=== PATIENT | female | born 1965 | race Caucasian/White ===

== ENCOUNTER 2017-09-03 10:34 | Emergency (ER) | payer MEDICAID ==
[~2017-09-03] VITALS: Ht 152.4 cm; Wt 87.0 kg
[2017-09-03 10:37] VITALS: BP 194/101; PULSE 91; RESP 16; O2SAT 100
--- NOTE | 2017-09-03 11:49 | PD ---
HPI Chief Complaint: Back/ Neck Pain or Injury Time Seen by Provider: 11:08 Travel History International Travel<30 days: No Contact w/Intl Traveler<30days: No Traveled to known affect area: No History of Present Illness HPI 52-year-old female came to the emergency room with history of lower back pain since yesterday. Patient says that yesterday morning she twisted to get something and heard a pop in her lower back and since then she has been in pain. She has been using warm shower and taking her pain medications but not working. This morning the pain was worse and decided to come to the emergency room. Patient does have history of chronic back problems and multiple herniated disks. She has a heel painter that she goes to. She has seen a neurosurgeon in the past who has told her that a surgery is not an option for her. She has had this kind of pain in the past. Pain is worse upon movement. It radiates down both her legs. No bladder or bowel incontinence PFSH Past Medical History Narrative Medical List of her past medical, surgical, social and family history reviewed from the nursing note. ?: Not Past Surgical History Hysterectomy: Yes Social History Tobacco Use: Yes Allergies-Medications (Allergen,Severity, Reaction): Coded Allergies: Anesthetics - Patty Type- Parabens (Verified Allergy, Severe, 09/03/17) "KIDNEY, LIVER FAILURE" Comments List of her allergies reviewed from the nursing note. Reported Meds & Prescriptions Reported Meds & Active Scripts Active Flexeril (Cyclobenzaprine HCl) 7.5 Mg Tab 7.5 Mg PO TID Narrative Medication List of her home medications reviewed from the nursing note. Review of Systems Except as stated in HPI: all other systems reviewed are Neg Musculoskeletal: Positive: Pain Physical Exam Narrative GENERAL: Awake, alert, moderate distress SKIN: Focused skin assessment warm/dry. HEAD: Atraumatic. Normocephalic. EYES: Pupils equal and round. No scleral icterus. No injection or drainage. ENT: No nasal bleeding or discharge. Mucous membranes pink and moist. NECK: Trachea midline. No JVD. CARDIOVASCULAR: Regular rate and rhythm. No murmur appreciated. RESPIRATORY: No accessory muscle use. Clear to auscultation. Breath sounds equal bilaterally. GASTROINTESTINAL: Abdomen soft, non-tender, nondistended. Hepatic and splenic margins not palpable. MUSCULOSKELETAL: No obvious deformities. No clubbing. No cyanosis. No edema. Paraspinal muscle spasm NEUROLOGICAL: Awake and alert. No obvious cranial nerve deficits. Motor grossly within normal limits. Normal speech. PSYCHIATRIC: Appropriate mood and affect; insight and judgment normal. Data Data Last Documented VS Vital Signs Date Time Temp Pulse Resp B/P (MAP) Pulse Ox O2 Delivery O2 Flow Rate FiO2 09/03/17 10:37 91 16 194/101 (132) 100 Orders Orders Ketorolac Inj (Toradol Inj) (09/03/17 12:00) Orphenadrine Inj (Norflex Inj) (09/03/17 12:00) Hydromorphone Pf Inj (Dilaudid Pf Inj) (09/03/17 12:00) Ed Discharge Order (09/03/17 14:04) [facility] Medical Decision Making Medical Screen Exam Complete: Yes Emergency Medical Condition: Yes Medical Record Reviewed: Yes Differential Diagnosis Lumbar radiculopathy, acute on chronic back pain Narrative Course 2:10 PM patient was given pain medication and muscle relaxant which helped her with the pain. I just reassessed her and she says she feels much better. I am comfortable discharging her home on prescription muscle relaxant. I have asked her to follow-up with her primary care and heel painter. Procedures EKG Prior to Arrival: No Diagnosis Primary Impression: Acute exacerbation of chronic low back pain Additional Instructions: Take the medication as per prescription direction. Apply warm compresses alternating with cold compress. Warm shower and or warm bath will be helpful as well. Follow-up with your heel painter on Tuesday. If the pain does not get better in next 3-4 days with all these measures then your primary care will require to get an MRI as an outpatient for you. Med/Other Pt SpecificInfo: Prescription(s) given Scripts Cyclobenzaprine (Flexeril) 7.5 Mg Tab 7.5 MG PO TID for Muscle Spasm, #21 TAB 0 Refills Prov: Arpit Marvin MD 09/03/17 Disposition: 01 DISCHARGE HOME Condition: Stable Arpit Marvin MD Sep 03, 2017 11:49
[2017-09-03] MEDS ORDERED: KETOROLAC TROMETHAMINE 60 MG/2 ML (IM) VIAL IM ONE (12:00)
[2017-09-03] MEDS ORDERED: HYDROmorphone HCL PF 2 MG/ML VIAL IM ONE (12:00)
[2017-09-03] MEDS ORDERED: ORPHENADRINE INJ 60 MG/2 ML AMP IM ONE (12:00)
[2017-09-03] MEDS ORDERED: CYCL7.5T33 PO (14:06)
== END 2017-09-03 15:16 | disposition home or self-care (01) ==
LOC: NEPD 10:34
DX: M54.5 Low back pain (principal); G89.29 Other chronic pain; Z72.0 Tobacco use
CPT/HCPCS: 96372; 99283; J1170; J1885; J2360